=== PATIENT | male | born 1975 | race Caucasian/White ===

== ENCOUNTER 2017-02-11 18:29 | Inpatient (IN) | payer MEDICAID ==
[2017-02-11 18:29] VITALS: BMI 27.8
[2017-02-11] MEDS ORDERED: Sodium Chloride 0.9% 1,000 ML IV STA (18:44)
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
[2017-02-11 19:10] LABS: BASO # 0.1 K/uL (0.0-0.2); EOS # 0.1 K/uL (0.0-0.7); EOS % 1.1 % (0.0-4.0); HEMATOCRIT 40.3 % (35.0-51.0); LYMPH # 3.5 K/uL (1.0-4.3); LYMPH % 30.5 % (20.0-40.0); MEAN CELL VOLUME 86.2 fl (80.0-94.0); MEAN CORPUSCULAR HEMOGLOBIN 28.1 pg (27.0-31.0); MEAN CORPUSCULAR HGB CONC 32.6 g/dL (33.0-37.0); MEAN PLATELET VOLUME 8.3 fl (7.2-11.7); MONO # 0.8 K/uL (0.0-0.8); MONO % 7.1 % (0.0-10.0); NEUT # 6.9 K/uL (1.8-7.0); NEUT % 60.3 % (50.0-75.0); NRBC % 0.1 % (0.0-0.0); RED CELL DISTRIBUTION WIDTH 14.2 % (11.5-14.5); WHITE BLOOD COUNT 11.4 K/uL (4.8-10.8)
[2017-02-11 19:22] LABS: ALB/GLOB RATIO 1.3 (1.0-2.1); ALCOHOL SERUM < 10 mg/dl (0-10); ALKALINE PHOSPHATASE 87 U/L (38-126); ALT/SGPT 58 U/L (21-72); AST/SGOT 85 U/L (17-59); BILIRUBIN,TOTAL 0.6 mg/dl (0.2-1.3); BLOOD UREA NITROGEN 17 mg/dl (9-20); CARBON DIOXIDE 25 mmol/L (22-30); CHLORIDE 105 mmol/L (98-107); GFR AFRICAN-AMERICAN > 60; GLUCOSE,RANDOM 83 mg/dL (75-110); MAGNESIUM 2.1 MG/DL (1.6-2.3); SODIUM 140 mmol/l (132-148); TOTAL PROTEIN 7.7 G/DL (6.3-8.2)
--- NOTE | 2017-02-11 22:13 | ED PDOC ---
- Laboratory Results Result Diagrams: 02/11/17 19:05 02/11/17 19:05 - ECG O2 Sat by Pulse Oximetry: 100 - Progress ED Course And Treament: Signed out to me pending re-evaluation and sobriety. CT head w/o contrast: negative. CT cervical spine w/o contrast: no fx. Pt. sleeping comfortably and easily arousable to tactile stimulation. 0015 Pt. woke up and began having bright red vomitus. Protonix 80mg IV, Zofran 4mg IV, IV NS bolus, labs ordered. EKG ordered. Pt. reports no hx of GI bleed. Last BM was yesterday and was normal. Pt. admits to drinking alcohol daily. Denies melena, hematochezia, BRBPR. RECTAL: hemoccult negative EKG: Sinus tach @ [address]-T wave changes, no QRS prolongation. Case d/w Dr. Mcqueen who agrees with care. Case d/w Dr. Jolley and arrangements made for admission. Disposition - Clinical Impression Clinical Impression: Overdose, Syncope, GI bleed - POA Present On Arrival: None - Disposition Disposition: Routine/Home Disposition Time: 01:00 Condition: FAIR
[2017-02-12] MEDS ORDERED: Sodium Chloride 0.9% 1,000 ML IV STA (00:18)
[2017-02-12 00:46] LABS: RBC URINE 3 /hpf (0-3); URINE BILIRUBIN NEGATIVE (NEGATIVE); URINE BLOOD SMALL (NEGATIVE); URINE COLOR YELLOW (YELLOW); URINE GLUCOSE (UA) NEG (Normal); URINE KETONE 20 mg/dL (NEGATIVE); URINE LEUKOCYTE ESTERASE NEG Leu/uL (Negative); URINE PROTEIN NEGATIVE (NEGATIVE); URINE UROBILINOGEN 0.2-1.0 mg/dL (0.2-1.0); WBC URINE 2 /hpf (0-5)
[2017-02-12 01:14] LABS: PARTIAL THROMBOPLASTIN TIME 28.7 SECONDS (23.3-32.5)
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
[2017-02-12] MEDS ORDERED: Multivitamin (MVI) 10 ML, Folic Acid 1 MG, Thiamine 100 MG in Dextrose 5%/0.45% NS 1,00... IV ONE (02:21)
[2017-02-12 07:36] LABS: HEMATOCRIT 37.4 % (35.0-51.0); MEAN CELL VOLUME 86.7 fl (80.0-94.0); MEAN CORPUSCULAR HEMOGLOBIN 27.8 pg (27.0-31.0); MEAN CORPUSCULAR HGB CONC 32.1 g/dL (33.0-37.0); RED CELL DISTRIBUTION WIDTH 14.5 % (11.5-14.5); WHITE BLOOD COUNT 9.2 K/uL (4.8-10.8)
[2017-02-12 07:55] LABS: BLOOD UREA NITROGEN 13 mg/dl (9-20); CALCIUM 8.1 mg/dL (8.4-10.2); CARBON DIOXIDE 27 mmol/L (22-30); CHLORIDE 106 mmol/L (98-107); GFR AFRICAN-AMERICAN > 60; GLUCOSE,RANDOM 94 mg/dL (75-110); SODIUM 140 mmol/l (132-148)
--- NOTE | 2017-02-12 08:03 | RAD ---
HISTORY: Syncope. COMPARISON: No prior. FINDINGS: LUNGS: No active pulmonary disease. PLEURA: No significant pleural effusion identified, no pneumothorax apparent. CARDIOVASCULAR: No radiographic findings to suggest acute or significant cardiovascular disease. OSSEOUS STRUCTURES: No significant abnormalities. VISUALIZED UPPER ABDOMEN: Normal. OTHER FINDINGS: None. IMPRESSION: No active disease.
--- NOTE | 2017-02-12 08:32 | RAD ---
HISTORY: hematemesis COMPARISON: 02/11/2017. FINDINGS: LUNGS: No active pulmonary disease. PLEURA: No significant pleural effusion identified, no pneumothorax apparent. CARDIOVASCULAR: Normal. OSSEOUS STRUCTURES: No significant abnormalities. Multiple old healed rib fractures left ema thorax. VISUALIZED UPPER ABDOMEN: Normal. OTHER FINDINGS: None. IMPRESSION: No active disease. No significant interval change compared to the prior examination(s).
--- NOTE | 2017-02-12 10:20 | CT ---
PROCEDURE: CT HEAD WITHOUT CONTRAST. HISTORY: AMS COMPARISON: None available. TECHNIQUE: Axial computed tomography images were obtained through the head/brain without intravenous contrast. Radiation dose: Total exam DLP = 875 mGy-cm. This CT exam was performed using one or more of the following dose reduction techniques: Automated exposure control, adjustment of the mA and/or kV according to patient size, and/or use of iterative reconstruction technique. FINDINGS: HEMORRHAGE: No intracranial hemorrhage. BRAIN: No mass effect or edema. No atrophy or chronic microvascular ischemic changes. VENTRICLES: Unremarkable. No hydrocephalus. CALVARIUM: Unremarkable. PARANASAL SINUSES: Unremarkable as visualized. No significant inflammatory changes. MASTOID AIR CELLS: Unremarkable as visualized. No inflammatory changes. OTHER FINDINGS: None. IMPRESSION: Normal CT of the Head.
--- NOTE | 2017-02-12 10:27 | CT ---
PROCEDURE: CT Cervical Spine without contrast HISTORY: <fall> COMPARISON: None available. TECHNIQUE: Axial computed tomography images were obtained of the cervical spine without the use of intravenous contrast. Coronal and sagittal reformatted images were created and reviewed. Radiation dose: Total exam DLP = 633 mGy-cm. This CT exam was performed using one or more of the following dose reduction techniques: Automated exposure control, adjustment of the mA and/or kV according to patient size, and/or use of iterative reconstruction technique. FINDINGS: VERTEBRAE: No fracture. Normal alignment. No destructive bony lesion. DISCS/SPINAL CANAL/NEURAL FORAMINA: Multilevel disc space narrowing and spondylosis. PARASPINAL SOFT TISSUES: Unremarkable. OTHER FINDINGS: None. IMPRESSION: No acute fracture. Degenerative changes.
[2017-02-12] MEDS ORDERED: Lactated Ringer's 500 ML IV ONE (11:35)
[2017-02-12] MEDS ORDERED: Propofol 10 mg/ml Inj (20 ML) ONE ×2 (12:06→12:32)
--- NOTE | 2017-02-12 14:11 | CON ---
DATE: 02/12/2017 REFERRING PHYSICIAN: Dr. Yoseph Jolley REASON FOR CONSULTATION: Hematemesis. This is a 41-year-old man with history of mental status changes, is homeless male recently presented 2 weeks ago, anxiety, depression, back problems, alcohol and drug abuse. Essentially [place] unrespons bar[place]. He basically had episode of bright red blood emesis, for which GI was called. The patient is currently lying in bed, comfortable, no apparent distress. PAST MEDICAL HISTORY: As above. PAST SURGICAL HISTORY: As above. MEDICATIONS: Have been reviewed. All other systems have been reviewed and negative apart from the HPI. PHYSICAL EXAMINATION: VITAL SIGNS: Here in the hospital, . GENERAL: A pleasant middle-aged man, lying in bed, comfortable, in no apparent distress. HEAD: Normocephalic, atraumatic. EYES: Pupils equally reactive to light bilaterally. No conjunctival pallor or icterus. NECK: Supple, normal range of motion. No lymphadenopathy appreciated. LUNGS: Coarse breath sounds bilaterally. HEART: S1, S2. Regular rate and rhythm. No murmurs appreciated. ABDOMEN: Soft, nontender. Bowel sounds present. No rebound, no guarding. RECTAL: Deferred. EXTREMITIES: Pulses present bilaterally. SKIN: Warm, dry and intact. NEUROLOGIC: Alert and oriented x 3. LABORATORIES: Have been reviewed. down to 9.3, hemoglobin was 13.1, now 12.1, platelet count is normal. INR is normal. AST 85. ASSESSMENT AND PLAN: This is a 41-year-old man with hematemesis. Plan for EGD. Thank you for the consult. Cirilo Mcqueen MD, PhD cc:Yoseph Jolley M.D. [id number] TT: 02/12/2017 14:10:34 Confirmation # [id number] Dictation # [id number]
--- NOTE | 2017-02-12 15:06 | CP.PCM.PN ---
Subjective - Date & Time of Evaluation Date of Evaluation: 02/12/17 Time of Evaluation: 14:45 - Subjective Subjective: Hospitalist Progress Note (Patient was seen and examined at 2:45 PM 02/12/17 402- 2) 41 year old male who was admitted earlier this morning after he was found un[place]. UDS showed positive for Opiates , Phenycyclidine, Benzodiazepine, and Cocaine. He also had one episode of bright red blood vomitus while in the ER. He was admitted to the Telemetry Unit for further evaluation. ROS NO more episodes of blood vomiting NO other complaints other than swelling and pain in both feet that has been present for the past 3 weeks. NO chest pain, NO palpitations, NO SOB/Cough/Wheezing, NO dysphagia/odynophagia , NO abdominal pain, NO d/c, NO burning/pain with urination, NO headache, NO new changes in vision/eye pain, NO new changes in hearing/ear pain, NO paresthesias, NO lightheadedness/dizziness Exam: HEENT: NCA, EOMI, PERRLA, NO cervical/supraclavicular/submandibular lymphadenopathy, NO pharyngeal erythema/exudate, Oral Mucosa and Nasal Turbinates are moist Cardio: NS1 and NS2, NO M/R/G Resp: CTA B/L, NO R/R/W GI: BSx4, Soft, NT, Central Obesity, Liver and Spleen could not be adequately palpated, NO guarding/rebound tenderness Ext: Non-pitting edema bilateral feet to superior to the ankles, non tender to palpation, blister present on right foot pedal surface and small sore (without cellulitis) on left foot dorsal surface near great toe Neuro: CN II through XII are grossly intact Assessment and Plan: 1). Polysubstance Abuse Psychiatry and [employer]ator Consult ordered: history of being detained in [facility] in [place], [place] for the past 2 years where he was awaiting assylum. Family is in [place]. States that he was released from immigration 3 weeks ago without any assistance and therefore became homeless. Feet hurt secondary to walking long distances. Took multiple drugs (see UDS) as he states that someone told him it would help with his feet pain. NO thoughts of hurting himself or others 2). Upper GI Bleed (Episode of Blood Vomitus) S/P EGD today by GI Dr. Mcqueen showing Esophagitis, Gastritis: F/U Biopsy reports Zofran 4mg IV Q24H PRN N/V Protonix 40 mg IV 1x/day 3). Hx of Alcohol Use Ativan 1 mg IV Q6H PRN Agitation Banana Bag @ 100 ml per hour 4). Leukocytosis This is likely reactive F/U CBC 5). Hx Chronic Back Pain Monitor for now 6). Prophylactic Measure Protonix 40 mg IV 1x/day NO anticoagulation for now considering the episode of blood vomitus Venous Duplex of B/L LE ordered secondary to edema noted on exam and if negative then B/L SCDs Bacitracin topical TID to the effected areas on the bilateral feet Objective - Vital Signs/Intake and Output Vital Signs (last 24 hours): Temp Pulse Resp BP Pulse Ox 97.8 F 88 20 100/56 L 96 02/12/17 13:02 02/12/17 13:02 02/12/17 13:02 02/12/17 13:02 02/12/17 13:02 Intake and Output: 02/12/17 02/12/17 06:59 18:59 Intake Total 100 Balance 100 - Medications Medications: Current Medications Lorazepam (Ativan) 1 mg IVP Q6 PRN PRN Reason: Agitation Ondansetron HCl (Zofran Inj) 4 mg IVP Q4 PRN PRN Reason: Nausea/Vomiting Pantoprazole Sodium (Protonix Inj) 40 mg IVP DAILY [facility] Last Admin: 02/12/17 08:53 Dose: 40 mg - Labs Labs: 02/12/17 07:15 02/12/17 07:15 PT 11.6 SECONDS (9.6-11.2) H 02/12/17 00:32 INR 1.12 (0.92-1.08) H 02/12/17 00:32 APTT 28.7 SECONDS (23.3-32.5) 02/12/17 00:32
[2017-02-12] MEDS: Bacitracin OINT 15GM TOP SCH (18:05)
--- NOTE | 2017-02-13 02:15 | CARD ---
APPROVED REPORT EKG Measurement Heart [id number] <Conclusion> Sinus tachycardia Otherwise normal ECG
--- NOTE | 2017-02-13 02:17 | CARD ---
APPROVED REPORT EKG Measurement Heart [id number] <Conclusion> Normal sinus rhythm Normal ECG
[2017-02-13 05:02] VITALS: RESP 18
[2017-02-13 07:17] LABS: BASO # 0.1 K/uL (0.0-0.2); BASO % 0.7 % (0.0-2.0); EOS # 0.2 K/uL (0.0-0.7); EOS % 2.4 % (0.0-4.0); HEMATOCRIT 38.6 % (35.0-51.0); LYMPH # 2.8 K/uL (1.0-4.3); LYMPH % 36.6 % (20.0-40.0); MEAN CELL VOLUME 85.7 fl (80.0-94.0); MEAN CORPUSCULAR HEMOGLOBIN 28.4 pg (27.0-31.0); MEAN CORPUSCULAR HGB CONC 33.1 g/dL (33.0-37.0); MEAN PLATELET VOLUME 8.7 fl (7.2-11.7); MONO # 0.7 K/uL (0.0-0.8); MONO % 9.7 % (0.0-10.0); NEUT # 3.8 K/uL (1.8-7.0); NEUT % 50.6 % (50.0-75.0); RED CELL DISTRIBUTION WIDTH 14.4 % (11.5-14.5); WHITE BLOOD COUNT 7.6 K/uL (4.8-10.8)
[2017-02-13 07:36] LABS: BLOOD UREA NITROGEN 11 mg/dl (9-20); CALCIUM 8.7 mg/dL (8.4-10.2); CARBON DIOXIDE 27 mmol/L (22-30); CHLORIDE 106 mmol/L (98-107); GFR AFRICAN-AMERICAN > 60; GLUCOSE,RANDOM 88 mg/dL (75-110); POTASSIUM 4.1 MMOL/L (3.6-5.0); SODIUM 142 mmol/l (132-148)
[2017-02-13] MEDS: Bacitracin OINT 15GM TOP SCH ×2 (10:14→13:00)
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
[2017-02-13 12:02] VITALS: BP 104/74; PULSE 81; TEMP 98.5; O2SAT 99
--- NOTE | 2017-02-13 12:16 | CP.PCM.DIS ---
Provider - Provider Date of Admission: 02/12/17 20:39 Attending physician: Yoseph Jolley Consults: GI : Dr Mcqueen Psych; Dr Tolentino Time Spent in preparation of Discharge (in minutes): 35 Diagnosis - Discharge Diagnosis (1) GI bleed Status: Acute (2) Polysubstance abuse Status: Chronic (3) Foot pain Status: Chronic (4) Depression Status: Chronic Hospital Course - Lab Results Lab Results: Most Recent Lab Values WBC 7.6 K/uL (4.8-10.8) 02/13/17 05:10 RBC 4.51 Mil/uL (4.40-5.90) 02/13/17 05:10 Hgb 12.8 g/dL (12.0-18.0) 02/13/17 05:10 Hct 38.6 % (35.0-51.0) 02/13/17 05:10 MCV 85.7 fl (80.0-94.0) 02/13/17 05:10 MCH 28.4 pg (27.0-31.0) 02/13/17 05:10 MCHC 33.1 g/dL (33.0-37.0) 02/13/17 05:10 RDW 14.4 % (11.5-14.5) 02/13/17 05:10 Plt Count 324 K/uL (130-400) 02/13/17 05:10 MPV 8.7 fl (7.2-11.7) 02/13/17 05:10 Neut % (Auto) 50.6 % (50.0-75.0) 02/13/17 05:10 Lymph % (Auto) 36.6 % (20.0-40.0) 02/13/17 05:10 [place] % (Auto) 9.7 % (0.0-10.0) 02/13/17 05:10 Eos % (Auto) 2.4 % (0.0-4.0) 02/13/17 05:10 Baso % (Auto) 0.7 % (0.0-2.0) 02/13/17 05:10 Neut # 3.8 K/uL (1.8-7.0) 02/13/17 05:10 Lymph # 2.8 K/uL (1.0-4.3) 02/13/17 05:10 [place] # 0.7 K/uL (0.0-0.8) 02/13/17 05:10 Eos # 0.2 K/uL (0.0-0.7) 02/13/17 05:10 Baso # 0.1 K/uL (0.0-0.2) 02/13/17 05:10 PT 11.6 SECONDS (9.6-11.2) H 02/12/17 00:32 INR 1.12 (0.92-1.08) H 02/12/17 00:32 APTT 28.7 SECONDS (23.3-32.5) 02/12/17 00:32 Sodium 142 mmol/l (132-148) 02/13/17 05:10 Potassium 4.1 MMOL/L (3.6-5.0) 02/13/17 05:10 Chloride 106 mmol/L (98-107) 02/13/17 05:10 Carbon Dioxide 27 mmol/L (22-30) 02/13/17 05:10 Anion Gap 13 (10-20) 02/13/17 05:10 BUN 11 mg/dl (9-20) 02/13/17 05:10 Creatinine 0.8 mg/dL (0.8-1.5) 02/13/17 05:10 Est GFR ( Amer) > 60 02/13/17 05:10 Est GFR (Non-Af Amer) > 60 02/13/17 05:10 POC Glucose (mg/dL) 95 mg/dL (65-110) 02/11/17 18:46 Random Glucose 88 mg/dL (75-110) 02/13/17 05:10 Calcium 8.7 mg/dL (8.4-10.2) 02/13/17 05:10 Magnesium 2.1 MG/DL (1.6-2.3) 02/11/17 19:05 Total Bilirubin 0.6 mg/dl (0.2-1.3) 02/11/17 19:05 AST 85 U/L (17-59) H D 02/11/17 19:05 ALT 58 U/L (21-72) 02/11/17 19:05 Alkaline Phosphatase 87 U/L (38-126) 02/11/17 19:05 Total Protein 7.7 G/DL (6.3-8.2) 02/11/17 19:05 Albumin 4.4 g/dL (3.5-5.0) 02/11/17 19:05 Globulin 3.3 gm/dL (2.2-3.9) 02/11/17 19:05 Albumin/Globulin Ratio 1.3 (1.0-2.1) 02/11/17 19:05 Urine Color Yellow (YELLOW) 02/12/17 00:36 Urine Clarity Clear (Clear) 02/12/17 00:36 Urine pH 6.0 (5.0-8.0) 02/12/17 00:36 Ur Specific [place] 1.015 (1.003-1.030) 02/12/17 00:36 Urine Protein Negative mg/dL (NEGATIVE) 02/12/17 00:36 Urine Glucose (UA) Neg mg/dL (Normal) 02/12/17 00:36 Urine Ketones 20 mg/dL (NEGATIVE) 02/12/17 00:36 Urine Blood Small (NEGATIVE) 02/12/17 00:36 Urine Nitrate Negative (NEGATIVE) 02/12/17 00:36 Urine Bilirubin Negative (NEGATIVE) 02/12/17 00:36 Urine Urobilinogen 0.2-1.0 mg/dL (0.2-1.0) 02/12/17 00:36 Ur Leukocyte Esterase Neg [place]/uL (Negative) 02/12/17 00:36 Urine RBC (Auto) 3 /hpf (0-3) 02/12/17 00:36 Urine Microscopic WBC 2 /hpf (0-5) 02/12/17 00:36 Salicylates < 1.0 mg/dl 02/11/17 19:05 Urine Opiates Screen Positive (NEGATIVE) H 02/12/17 00:36 Urine Methadone Screen Negative (NEGATIVE) 02/12/17 00:36 Acetaminophen < 10.0 ug/ml (10.0-30.0) L 02/11/17 19:05 Ur Barbiturates Screen Negative (NEGATIVE) 02/12/17 00:36 Ur Phencyclidine Scrn Positive (NEGATIVE) H 02/12/17 00:36 Ur Amphetamines Screen Negative (NEGATIVE) 02/12/17 00:36 U Benzodiazepines Scrn Positive (NEGATIVE) H 02/12/17 00:36 U Oth Cocaine Metabols Positive (NEGATIVE) H 02/12/17 00:36 U Cannabinoids Screen Negative (NEGATIVE) 02/12/17 00:36 Alcohol, Quantitative < 10 mg/dl (0-10) 02/11/17 19:05 Blood Type A POSITIVE 02/12/17 00:40 Blood Type Confirm A POSITIVE 02/12/17 07:15 Antibody Screen Negative 02/12/17 00:40 BBK History Checked No verified bt 02/12/17 00:40 - Hospital Course Hospital Course: 41 years Homeless male released from [facility] 2 weeks prior with hx of Anxiety, Depression, back problem, alcohol and drug abuse [place] was brought to the ED for possible drug overdose. In the ED , was awake and able to give a history, stating that he took 5 Effexor of 300mg each, 7 Neurontin 800mg each to relieve the pain at both feet. These medications were [facility] for his painful back. He referred no thoughts of Suicide nor Homicide. In the ED, he vomited once and vomitus had blood. Admitted to Telemetry - started on IV Protonix. GI consulted- underwent EGD w/c showed NO activve bleeding - noted was Esophagitis and Gastritis. 1). Polysubstance Abuse Urine Tox : + for Cocaine, Benzo, PCP,Opiates also took about 5 tabs Effexor and 8 tabs Neurontin Counseled re drug abuse SW consulted Psych consulted 2). Upper GI Bleed (Episode of Blood Vomitus) S/P EGD today by GI Dr. Mcqueen showing Esophagitis, Gastritis F/U Biopsy report at [facility] Zofran 4mg IV Q24H PRN N/V Protonix 40 mg IV 1x/day 3). Hx of Alcohol Use no signs of withdrawal sxs, states that he only occasionally drinks Ativan 1 mg IV Q6H PRN Banana Bag @ 100 ml per hour 4). Leukocytosis This is likely reactive rpt showed normal WBC, no signs of infection 5). Hx Foot Pain pt on his feet all day due to homelessness Doppler US of LE negative 6). Prophylactic Measure NO anticoagulation for now considering the episode of blood vomitus Discharge Exam - Head Exam Head Exam: ATRAUMATIC, NORMAL INSPECTION, NORMOCEPHALIC - Eye Exam Eye Exam: EOMI, Normal appearance, PERRL Pupil Exam: NORMAL ACCOMODATION - ENT Exam ENT Exam: Mucous Membranes Moist, Normal External Ear Exam - Neck Exam Neck exam: Full Rom - Respiratory Exam Respiratory Exam: NORMAL BREATHING PATTERN. absent: Respiratory Distress - Cardiovascular Exam Cardiovascular Exam: REGULAR RHYTHM, +S1, +S2 - GI/Abdominal Exam GI & Abdominal Exam: Normal Bowel Sounds, Soft. absent: Tenderness - Extremities Exam Extremities exam: full ROM, normal capillary refill, pedal edema, pedal pulses present - Back Exam Back exam: FULL ROM. absent: CVA tenderness (L), CVA tenderness (R) - Neurological Exam Neurological exam: Alert, CN II-XII Intact, Oriented x3, Reflexes Normal - Psychiatric Exam Psychiatric exam: Flat Affect - Skin Skin Exam: Dry, Normal Color, Warm Discharge Plan - Discharge Medications Prescriptions: Omeprazole 40 mg PO DAILY #30 tablet.dr - Follow Up Plan Condition: GOOD Disposition: HOME/ ROUTINE Instructions: Syncope (DC), Syncope (GEN) Additional Instructions: appt FP clinic in 1 wk, ff up biopsy result in the clinic [facility] appt [facility] alcohol and drug counselor to d/c ETOH, drugs, smoking Referrals: [facility] [Outside] Formerly [facility] [Outside]
--- NOTE | 2017-02-13 12:26 | US ---
PROCEDURE: Bilateral lower extremity duplex venous sonography. HISTORY: Bilateral Lower Extremity Edema COMPARISON: None available. TECHNIQUE: Bilateral common femoral, superficial femoral, popliteal and posterior tibial veins were evaluated. Flow was assessed with color Doppler, compressibility, assessment of phasic flow and augmentation response. FINDINGS: COMMON FEMORAL VEIN: Right CFV: Unremarkable. Left CFV: Unremarkable. SUPERFICIAL FEMORAL VEIN: Right SFV: Unremarkable. Left SFV: Unremarkable. POPLITEAL VEIN: Right Popliteal: Unremarkable. Left Popliteal: Unremarkable. POSTERIOR TIBIAL VEIN: Right PTV: Unremarkable. Left PTV: Unremarkable. OTHER FINDINGS: Left popliteal fossa collection 2.4 x 2.4 by 2.3 cm. IMPRESSION: No evidence of deep venous thrombosis. Additional benign and/or incidental findings described above.
== END 2017-02-13 13:44 | disposition home or self-care (01) | DRG 918 ==
LOC: H.ER 18:29 → H.EROBSV 19:58 → INTOOBSV 02-12 01:28 → OBSVTOIN 02-12 01:28 → H.ERHOLD 02-12 01:28 → H.TEL 02-12 03:47 → OBSVTOIN 02-12 20:39
PROVIDERS: ADMIT Internal Medicine; ATTEND Internal Medicine
PROC: 0DB58ZX Excision of Esophagus, Via Natural or Artificial Opening Endoscopic, Diagnostic (ICD-10-PCS; principal; 2017-02-12 12:00)
DX: T43.211A Poisoning by selective serotonin and norepinephrine reuptake inhibitors, accidental (unintentional), initial encounter (principal); K92.0 Hematemesis; G62.9 Polyneuropathy, unspecified; F32.9 Major depressive disorder, single episode, unspecified; K20.9 Esophagitis, unspecified; F10.10 Alcohol abuse, uncomplicated; F14.10 Cocaine abuse, uncomplicated; F11.10 Opioid abuse, uncomplicated; F16.10 Hallucinogen abuse, uncomplicated; F12.90 Cannabis use, unspecified, uncomplicated; F41.9 Anxiety disorder, unspecified; G89.29 Other chronic pain; M54.5 Low back pain; K29.50 Unspecified chronic gastritis without bleeding; D72.828 Other elevated white blood cell count; F17.210 Nicotine dependence, cigarettes, uncomplicated; Z59.0 Homelessness; Y92.89 Other specified places as the place of occurrence of the external cause

== ENCOUNTER 2017-03-04 04:01 | Emergency (ER) | payer MEDICAID, OTHER ==
[2017-03-04 04:02] VITALS: BMI 27.8
[2017-03-04 04:19] VITALS: BP 135/75; PULSE 104; RESP 18; TEMP 98; O2SAT 98
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
== END 2017-03-04 05:02 | disposition home or self-care (01) ==
LOC: H.ER 04:01
DX: G56.30 Lesion of radial nerve, unspecified upper limb (principal); R20.9 Unspecified disturbances of skin sensation; F17.200 Nicotine dependence, unspecified, uncomplicated; Z86.59 Personal history of other mental and behavioral disorders; F41.9 Anxiety disorder, unspecified; F32.9 Major depressive disorder, single episode, unspecified

== ENCOUNTER 2018-02-13 18:26 | Emergency (ER) | payer MEDICAID, SELFPAY ==
[2018-02-13 18:26] VITALS: BMI 27.8
[2018-02-13 18:33] VITALS: BP 137/78; PULSE 93; RESP 16; TEMP 98.2; O2SAT 99
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
[2018-02-13] MEDS ORDERED: Lidocaine 1% Inj (20ml) ONE (20:09)
[2018-02-13] MEDS ORDERED: Povidone Iodine Topical 10% Sol ONE (20:10)
--- NOTE | 2018-02-14 09:22 | RAD ---
PROCEDURE: Right Hand Radiographs. HISTORY: s/p reduction COMPARISON: 02/13/2018 8:14 p.m. FINDINGS: BONES: Status post close reduction comminuted distal 5th metacarpal diaphysis fracture. There is displacement and angulation at the fracture site. There is no additional fracture identified. Bony detail is partially obscured by overlying fiberglass splint material. JOINTS: Normal. No osteoarthritic changes. SOFT TISSUES: Normal. OTHER FINDINGS: None. IMPRESSION: Displaced, angulated comminuted distal 5th metacarpal diaphysis fracture.
--- NOTE | 2018-02-14 09:23 | RAD ---
PROCEDURE: Right Hand Radiographs. HISTORY: S/P REDUCTION COMPARISON: 02/13/2018 at 7:10 p.m. FINDINGS: BONES: Comminuted fracture distal 5th metacarpal diaphysis with mild angulation and some overriding. . No other fracture identified. Bony detail partially obscured by overlying fiberglass splint. JOINTS: Normal. No osteoarthritic changes. SOFT TISSUES: Normal. OTHER FINDINGS: None. IMPRESSION: Comminuted distal 5th metacarpal diaphysis fracture.
--- NOTE | 2018-02-14 10:24 | RAD ---
PROCEDURE: Right Hand Radiographs. HISTORY: trauma COMPARISON: None. FINDINGS: BONES: Comminuted fracture distal aspect right 5th metacarpal with considerable angulation. Fractures non articular. The metacarpal phalangeal joint is preserved. JOINTS: Normal. No osteoarthritic changes. SOFT TISSUES: Soft tissue swelling attests to the acuity of the fracture. OTHER FINDINGS: None. IMPRESSION: Acute fracture distal aspect right 5th metacarpal.
== END 2018-02-13 21:44 | disposition home or self-care (01) ==
LOC: H.ER 18:26
DX: S62.306A Unspecified fracture of fifth metacarpal bone, right hand, initial encounter for closed fracture (principal); Y04.0XXA Assault by unarmed brawl or fight, initial encounter; F17.200 Nicotine dependence, unspecified, uncomplicated; F32.9 Major depressive disorder, single episode, unspecified; Z86.59 Personal history of other mental and behavioral disorders